=== PATIENT | female | born 1995 | race Caucasian/White ===

== ENCOUNTER → 2017-11-16 | Outpatient (CLI) | payer OTHER ==
[2017-11-16 19:01] LABS: BASO % 0.2 % (0.0-1.0); EOS # 0.1 10^3/uL (0.0-0.50); EOS % 1.4 % (0.0-3.0); HEMATOCRIT 36.6 % (36.0-47.0); HEMOGLOBIN 12.6 g/dl (12.0-15.5); IMMATURE GRANULOCYTE % 0.2 % (0-3.0); LYMPH # 1.8 10^3/uL (1.5-6.5); LYMPH % 21.9 % (24.0-44.0); MEAN CORPUSCULAR HEMOGLOBIN 28.9 pg (27.0-33.0); MEAN CORPUSCULAR HGB CONC 34.4 g/dl (32.0-36.5); MEAN CORPUSCULAR VOLUME 83.9 fl (80.0-96.0); MONO # 0.5 10^3/uL (0.0-0.8); MONO % 6.5 % (0.0-5.0); NEUTROPHILS # 5.8 10^3/uL (1.8-7.7); NEUTROPHILS % 69.8 % (36.0-66.0); PLATELET COUNT, AUTOMATED 232 10^3/uL (150-450); RED BLOOD COUNT 4.36 10^6/uL (4.00-5.40); RED CELL DISTRIBUTION WIDTH 12.6 % (11.5-14.5); WHITE BLOOD COUNT 8.3 10^3/uL (4.0-10.0)
[2017-11-16 22:54] LABS: CHLAMYDIA DNA AMPLIFICATION NEGATIVE (NEGATIVE); GC DNA AMPLIFICATION NEGATIVE (NEGATIVE)
[2017-11-18 11:45] LABS: RUBELLA IgG QUALITATIVE IMMUNE (IMMUNE)
[2017-11-18 11:49] LABS: HBsAg Prenatal NEGATIVE (NEGATIVE)
[2017-11-18 12:13] LABS: HEPATITIS C VIRUS ABY INDEX 0.1 INDEX (<0.8)
[2017-11-18 12:14] LABS: HIV 1&2 SCREEN CENTAUR NEGATIVE (NEGATIVE)
== END ==
LOC: M SMT 13:33
DX: Z34.81 Encounter for supervision of other normal pregnancy, first trimester (principal); Z3A.08 8 weeks gestation of pregnancy
CPT/HCPCS: 86762

== ENCOUNTER → 2018-01-12 | Outpatient (CLI) | payer OTHER | LOC: M SMT 15:34 | DX: Z31.5 Encounter for procreative genetic counseling (principal) | CPT/HCPCS: 36415 ==

== ENCOUNTER → 2018-01-25 | Outpatient (CLI) | payer OTHER | LOC: M RAD 08:33 | DX: Z34.82 Encounter for supervision of other normal pregnancy, second trimester (principal); Z36.89 Encounter for other specified antenatal screening; Z3A.18 18 weeks gestation of pregnancy | CPT/HCPCS: 76811 ==

== ENCOUNTER → 2018-03-05 | Outpatient (CLI) | payer OTHER | LOC: M RAD 08:51 | DX: Z34.82 Encounter for supervision of other normal pregnancy, second trimester (principal); Z36.89 Encounter for other specified antenatal screening; Z3A.22 22 weeks gestation of pregnancy | CPT/HCPCS: 76816 ==

== ENCOUNTER → 2018-03-25 | Outpatient (CLI) | payer OTHER | LOC: M LRY 13:37 | DX: Z34.02 Encounter for supervision of normal first pregnancy, second trimester (principal); Z3A.27 27 weeks gestation of pregnancy | CPT/HCPCS: 76816 ==

== ENCOUNTER → 2018-03-31 | Outpatient (CLI) | payer OTHER ==
[2018-03-31 16:00] LABS: GLUCOSE CHALLENGE TEST 1 HOUR 130 MG/DL (LESS THAN 140)
[2018-03-31 16:00] LABS: MEAN CORPUSCULAR HEMOGLOBIN 27.4 pg (27.0-33.0); MEAN CORPUSCULAR HGB CONC 33.3 g/dl (32.0-36.5); MEAN CORPUSCULAR VOLUME 82.3 fl (80.0-96.0); PLATELET COUNT, AUTOMATED 224 10^3/uL (150-450); RED BLOOD COUNT 4.01 10^6/uL (4.00-5.40); RED CELL DISTRIBUTION WIDTH 13.5 % (11.5-14.5)
== END ==
LOC: M LAB 14:26
DX: Z34.82 Encounter for supervision of other normal pregnancy, second trimester (principal); Z3A.00 Weeks of gestation of pregnancy not specified
CPT/HCPCS: 82950

== ENCOUNTER → 2018-04-16 | Outpatient (CLI) | payer OTHER | LOC: M LRY 08:02 | DX: Z36.89 Encounter for other specified antenatal screening (principal); Z3A.29 29 weeks gestation of pregnancy | CPT/HCPCS: 76816 ==

== ENCOUNTER → 2018-05-24 | Outpatient (REF) | payer OTHER | LOC: M LAB REF 17:28 | PROVIDERS: ATTEND Obstetrics & Gynecology | DX: Z34.03 Encounter for supervision of normal first pregnancy, third trimester (principal) ==

== ENCOUNTER 2018-06-18 15:32 | Inpatient (IN) | payer OTHER ==
[~2018-06-18] VITALS: Ht 165.1 cm; Wt 110.0 kg
[2018-06-18] VITALS (28 sets, daily range): BP systolic 121–187; BP diastolic 66–97
[2018-06-18] MEDS ORDERED: PRENTAB9 PO (16:12)
[2018-06-18] MEDS ORDERED: PRIL20TA2 PO (16:12)
[2018-06-18] MEDS ORDERED: OXYTOCIN DRIP 30 UNITS in APPROPRIATE DILUENT 1 EA IV SCH (16:15)
--- NOTE | 2018-06-18 16:45 | HPE ---
DATE OF ADMISSION: 06/18/2018 Selina is a 22-year-old 1, para 0 with an estimated date of confinement (EDC) of 06/24/2018 based on last menstrual period and confirmed by first-trimester ultrasound. She presents to labor and delivery today following a visit, where she was noted to have a spontaneous rupture of membranes following a cervical exam. She does report that she has been aicha since yesterday afternoon. Denies vaginal bleeding. Has reported continued leakage of fluid since her rupture at approximately 3:30. The fetus has been active. Her care was initiated at [facility] in the first trimester. Her course has been uncomplicated. OBSTETRICAL HISTORY: Primigravida. OBSTETRIC LABORATORIES: B+, antibody screen negative, rubella immune, VDRL nonreactive. Urine culture: No growth. Hepatitis B surface antigen negative. HIV negative. Hepatitis C antibody nonreactive. Gonorrhea and chlamydia negative. She did have panorama testing in the first trimester, which demonstrated low risk for aneuploidy in a male fetus. Her gestational diabetic screening was 130. Group B streptococcus culture was negative. PAST MEDICAL HISTORY: Negative. SURGERIES: None. FAMILY HISTORY: alcohol syndrome, esophageal cancer. SOCIAL HISTORY: The patient is . Her is at bedside, and he is supportive. She reports quitting smoking with the onset of her . She denies alcohol and drug use. She denies any history of sexually transmitted infections and denies history of abuse, physical, sexual, and emotional. ALLERGIES: AMOXICILLIN, which causes hives. CURRENT MEDICATIONS: - omeprazole 20 mg daily - vitamin OBJECTIVE: Temperature 98.2, pulse 95, blood pressure (BP) is 145/96. She is alert and oriented times three. She is smiling and talkative in no discomfort. heart rate is 140 with moderate variability. Positive accelerations observed. Negative decelerations. She is aicha every 2-4 minutes. Her abdomen is gravid, cephalic presentation. Estimated weight 8 pounds. Sterile vaginal exam: 1.5 cm dilated, 75% effaced, -2 station. Noted clear fluid draining from the vagina. ASSESSMENT: Term at 39-1/7 weeks. heart rate category 1. Premature rupture of membranes. PLAN: Admit the patient to labor and delivery. Routine labs with the addition of pre-eclamptic profile and a spot urine. Plan to start intravenous (IV) Pitocin to augment her labor due to the premature rupture of membranes.. The patient is uncertain as to how she will cope with her labor at this time. Epidural has been ordered per as needed. Out of bed ad elizabeth. Clear liquid diet at this time. I do anticipate an active labor and a spontaneous vaginal delivery. I did review risks, including intolerance to labor, arrest of labor. The patient has been verbally consented for emergency surgery and blood products if necessary. The patient and her have had all of their questions answered and do desire to proceed with plan of care. OZZY
[2018-06-18 17:01] LABS: HEMATOCRIT 32.2 % (36.0-47.0); MEAN CORPUSCULAR HEMOGLOBIN 26.6 pg (27.0-33.0); MEAN CORPUSCULAR HGB CONC 34.2 g/dl (32.0-36.5); PLATELET COUNT, AUTOMATED 238 10^3/uL (150-450); RED BLOOD COUNT 4.13 10^6/uL (4.00-5.40); WHITE BLOOD COUNT 13.1 10^3/uL (4.0-10.0)
[2018-06-18] MEDS: LR 1,000 ML IV SCH (17:04)
[2018-06-18 17:31] LABS: ALT/SGPT 31 U/L (12-78); BILIRUBIN,TOTAL 0.3 MG/DL (0.2-1.0); CREATININE FOR GFR 0.57 MG/DL (0.55-1.30); GLOMERULAR FILTRATION RATE > 60.0 (>60); LDH LACTATE DEHYDROGENASE 251 U/L (84-246); URIC ACID 2.9 MG/DL (2.6-6.0)
[2018-06-18 17:38] LABS: CREATININE,RANDOM URINE 60.3 MG/DL; TOTAL PROTEIN,RANDOM URINE 70.8 MG/DL (0.0-12.0)
[2018-06-18 22:04] LABS: HEMATOCRIT 33.5 % (36.0-47.0); MEAN CORPUSCULAR HEMOGLOBIN 26.5 pg (27.0-33.0); MEAN CORPUSCULAR HGB CONC 32.8 g/dl (32.0-36.5); MEAN CORPUSCULAR VOLUME 80.7 fl (80.0-96.0); PLATELET COUNT, AUTOMATED 225 10^3/uL (150-450); RED BLOOD COUNT 4.15 10^6/uL (4.00-5.40)
[2018-06-18] MEDS ORDERED: diphenhydrAMINE INJ 50MG/ML VIAL (J1200) IV PRN (22:15)
[2018-06-18] MEDS ORDERED: NALOXONE INJ 0.4 MG/1 ML VIAL (J2310) IV PRN (22:15)
[2018-06-18] MEDS ORDERED: FENTANYL/ROPIVACAINE/NACL BAG 100 ML EPIDURAL SCH (22:15)
[2018-06-18] MEDS ORDERED: EPIDURAL/PCA KEYS XX PRN (22:15)
[2018-06-18] MEDS ORDERED: EPIDURAL COMMENT XX SCH (22:15)
[2018-06-18] MEDS ORDERED: LACTATED RINGER'S 1000 ML IV PRN (22:15)
[2018-06-18] MEDS ORDERED: ONDANSETRON 4MG/2ML VIAL (J2405) IV PRN (22:15)
[2018-06-18] MEDS ORDERED: ePHEDrine SULFATE 25 MG/5 ML(5MG/ML) SYRINGE IV PRN (22:15)
[2018-06-18] MEDS ORDERED: REFRIGERATOR IV KEYS XX PRN (22:15)
[2018-06-18] MEDS ORDERED: FENTANYL 2MCG/ML ROPIVACAINE 0.2% IN 0.9% NACL 100ML IVBAG As Ordered ONE (22:19)
[2018-06-19] VITALS (34 sets, daily range): BP systolic 112–165; BP diastolic 57–79
[2018-06-19] MEDS: LR 1,000 ML IV SCH (03:39)
[2018-06-19] MEDS ORDERED: OXYTOCIN 30 UNITS IN 0.9% NaCl 500ML IV BAG (J2590) As Ordered ONE (08:41)
[2018-06-19] MEDS ORDERED: OXYTOCIN DRIP 30 UNITS in APPROPRIATE DILUENT 1 EA IV SCH ×5 (09:00→10:07)
[2018-06-19] MEDS ORDERED: MEASLES,MUMPS,RUBELLA VACCINE INJ (MMR-II) (90707) SC SCH (10:15)
[2018-06-19] MEDS ORDERED: ACETAMINOPHEN 500 MG TAB PO PRN (10:15)
[2018-06-19] MEDS ORDERED: IBUPROFEN 800 MG TAB PO PRN (10:15)
[2018-06-19] MEDS ORDERED: METHYLERGONOVINE MALEATE 0.2 MG TAB PO PRN (10:15)
[2018-06-19] MEDS ORDERED: ANUSOL HC CREAM 30GM TOP PRN (10:15)
[2018-06-19] MEDS ORDERED: MOM 30ML SUSPENSION UDC PO PRN (10:15)
[2018-06-19] MEDS ORDERED: DOCUSATE SODIUM 100 MG CAP PO PRN (10:15)
[2018-06-19] MEDS ORDERED: DIBUCAINE 1% OINTMENT 30GM TOP PRN (10:15)
[2018-06-19] MEDS ORDERED: RHOGAM 300 MCG (1500 IU) INJ (J2790) IM SCH (10:15)
--- NOTE | 2018-06-19 10:50 | DN ---
DATE OF DELIVERY: 06/19/2018 TIME OF : 741 GENDER: Male. APGARS: 9 and 9. WEIGHT: 7 pounds 10 ounces or 3460 grams. LACERATIONS: None. ESTIMATED BLOOD LOSS: 300 mL. ANESTHESIA: Epidural. DELIVERY NOTE: On 06/19/2018, at 0742, Mrs. Soto, a 22-year-old, 1, now para 1, had a spontaneous vaginal delivery of a live born male infant, Apgars 9 and 9, weight 7 pounds 10 ounces or 3460 grams. Head was delivered occiput anterior (OA) over an intact perineum followed by delivery of shoulders and corpus. The infant was handed to mom with a good cry. Cord was then clamped times two and was cut by the father of the baby under my direction. Placenta was then drained and delivered grossly intact. A premixed bag of 500 mL of normal saline with 30 units of Pitocin was then bolused along with uterine massage until the uterus was firm. On inspection, the cervix, vagina and perineum was grossly intact and hemostatic. Mom and baby to recovery in stable condition. There were 5 laparotomy sponges accounted for prior to and after the procedure. The couple has decided to name their son, Juan.
[2018-06-20 05:49] VITALS: BP 131/70
[2018-06-20] MEDS: PRENATAL VITAMINS CHEWABLE TABLET PO SCH (08:33)
--- NOTE | 2018-06-20 10:13 | NUR ---
L&D Note: S: Doing well w/o complaints. + voids, + ambulation and pain well controlled. O: vss, AF gen: well appearing abd: soft, nttp, FF@U-2 ext: neg calf tenderness A/P: PPD#1 s/p - recovering in stable condition -continue routine care -d/c plans for tomorrow Asuncion Askew MD
[2018-06-20 18:28] VITALS: BP 126/74
[2018-06-21 06:00] VITALS: BP 113/57
[2018-06-21] MEDS: PRENATAL VITAMINS CHEWABLE TABLET PO SCH (09:01)
[2018-06-21] MEDS ORDERED: PREN27TA3 PO (10:18)
[2018-06-21] MEDS ORDERED: MOTR200T44 PO (10:18)
[2018-06-21] MEDS ORDERED: APAP500T10 PO (10:18)
[2018-06-21] MEDS ORDERED: MILK120011 PO (10:18)
[2018-06-21] MEDS ORDERED: COLA100C5 PO (10:18)
== END 2018-06-21 12:55 | disposition home or self-care (01) | DRG 560 ==
LOC: M LDI 15:32 → M OBS 06-19 13:07
PROVIDERS: ADMIT Advanced Practice Midwife; ATTEND Obstetrics & Gynecology
PROC: 10E0XZZ Delivery of Products of Conception, External Approach (ICD-10-PCS; principal; 2018-06-19)
DX: O42.02 Full-term premature rupture of membranes, onset of labor within 24 hours of rupture (principal); Z37.0 Single live birth; Z3A.39 39 weeks gestation of pregnancy

== ENCOUNTER 2019-07-19 17:06 | Emergency (ER) | payer OTHER, BC ==
[~2019-07-19] VITALS: Ht 167.6 cm; Wt 108.3 kg
[~2019-07-19 17:06] MED LIST: APAP500T10 PO; COLA100C5 PO; MILK120011 PO; MOTR200T44 PO; PREN27TA3 PO; PRENTAB9 PO; PRIL20TA2 PO
[2019-07-19 19:07] LABS: BASO % 0.3 % (0.0-1.0); EOS # 0.1 10^3/uL (0.0-0.5); EOS % 1.2 % (0.0-3.0); HEMATOCRIT 38.4 % (36.0-47.0); HEMOGLOBIN 12.5 g/dl (12.0-15.5); LYMPH % 29.9 % (24.0-44.0); MEAN CORPUSCULAR HEMOGLOBIN 25.5 pg (27.0-33.0); MEAN CORPUSCULAR HGB CONC 32.6 g/dl (32.0-36.5); MEAN CORPUSCULAR VOLUME 78.4 fl (80.0-96.0); MONO # 0.5 10^3/uL (0.0-0.8); MONO % 5.3 % (0.0-5.0); NEUTROPHILS # 6.4 10^3/uL (1.5-8.5); PLATELET COUNT, AUTOMATED 291 10^3/uL (150-450); WHITE BLOOD COUNT 10.1 10^3/uL (4.0-10.0)
[2019-07-19 19:33] LABS: ALBUMIN 4.1 GM/DL (3.2-5.2); ALT/SGPT 25 U/L (12-78); BILIRUBIN,TOTAL 0.2 MG/DL (0.2-1.0); BLOOD UREA NITROGEN 10 MG/DL (7-18); CALCIUM LEVEL 9.1 MG/DL (8.5-10.1); CARBON DIOXIDE LEVEL 28 MEQ/L (21-32); CHLORIDE LEVEL 104 MEQ/L (98-107); CREATININE FOR GFR 0.68 MG/DL (0.55-1.30); GLOMERULAR FILTRATION RATE > 60.0 (>60); GLUCOSE, FASTING 81 MG/DL (70-100); POTASSIUM SERUM 3.6 MEQ/L (3.5-5.1); SODIUM LEVEL 139 MEQ/L (136-145); TOTAL PROTEIN 8.3 GM/DL (6.4-8.2)
[2019-07-19 20:19] VITALS: BP 127/60
[2019-07-19 20:28] LABS: HCG, SERUM QUALITATIVE POSITIVE (NEGATIVE)
[2019-07-19] MEDS ORDERED: ARTICAINE HCL/EPINEPHRINE 4%-1:200,000 1.7ML INJ (SEPTOCAINE) SM ONE (20:45)
[2019-07-20 07:32] LABS: HCG, SERUM QUANTITATIVE 44207 MIU/ML
[2019-07-20 11:39] LABS: HEPATITIS B SURFACE ANTIGEN NEGATIVE (NEGATIVE)
[2019-07-20 11:43] LABS: HEPATITIS B SURFACE ANTIBODY NEGATIVE (POSITIVE)
[2019-07-20 12:08] LABS: HEPATITIS C VIRUS ABY INDEX < 0.0 INDEX (<0.8)
[2019-07-20 12:09] LABS: HIV 1&2 SCREEN CENTAUR NEGATIVE (NEGATIVE)
[2019-07-21] MEDS ORDERED: TRUVADA 200MG/300MG TABLET PO SCH
[2019-07-21] MEDS ORDERED: RALTEGRAVIR 400 MG TAB (ISENTRESS) PO SCH
[2019-07-21] MEDS ORDERED: EXPOSURE KIT-ADULT 7 DAY SUPPLY PO ONE (08:30)
--- NOTE | 2019-07-21 08:33 | ED PDOC ---
Post-Departure Follow-Up received call from Dr. Bedolla - patient had presented for occupational exposure wallis d not received PEP - as per Dr. Bedolla recommendations, I ordered 7 day supply for patient and patient was instructed to return to receive [address] Bedolla wrote 21 day script. Griselda Rodriguez MD Jul 21, 2019 08:33
[2019-07-21] MEDS ORDERED: TRUVADA 200MG/300MG TABLET PO ONE (09:00)
[2019-07-21] MEDS ORDERED: RALTEGRAVIR 400 MG TAB (ISENTRESS) PO ONE (09:00)
== END 2019-07-19 21:10 | disposition home or self-care (01) ==
LOC: M ED 17:06
DX: Z77.21 Contact with and (suspected) exposure to potentially hazardous body fluids (principal); Z20.5 Contact with and (suspected) exposure to viral hepatitis; W46.1XXA Contact with contaminated hypodermic needle, initial encounter; Y92.89 Other specified places as the place of occurrence of the external cause; Y93.F9 Activity, other caregiving; Y99.0 Civilian activity done for income or pay; Z32.01 Encounter for pregnancy test, result positive; Z79.899 Other long term (current) drug therapy; Z88.0 Allergy status to penicillin

== ENCOUNTER → 2019-07-29 | Outpatient (REF) | payer BC ==
[2019-07-29 17:25] LABS: HEMATOCRIT 36.2 % (36.0-47.0); HEMOGLOBIN 11.9 g/dl (12.0-15.5); MEAN CORPUSCULAR HEMOGLOBIN 25.6 pg (27.0-33.0); MEAN CORPUSCULAR HGB CONC 32.9 g/dl (32.0-36.5); PLATELET COUNT, AUTOMATED 287 10^3/uL (150-450); RED BLOOD COUNT 4.64 10^6/uL (4.00-5.40); WHITE BLOOD COUNT 9.3 10^3/uL (4.0-10.0)
[2019-07-29 18:51] LABS: CHLAMYDIA DNA AMPLIFICATION NEGATIVE (NEGATIVE); GC DNA AMPLIFICATION NEGATIVE (NEGATIVE)
[2019-08-01 08:52] LABS: HIV 1&2 SCREEN CENTAUR NEGATIVE (NEGATIVE); RUBELLA IgG QUALITATIVE IMMUNE (IMMUNE)
[2019-08-01 14:44] LABS: HEPATITIS B SURFACE ANTIGEN NEGATIVE (NEGATIVE); HEPATITIS C VIRUS ABY INDEX 0.1 INDEX (<0.8)
== END ==
LOC: M PLALAB 13:31
PROVIDERS: ATTEND Obstetrics & Gynecology
DX: Z34.91 Encounter for supervision of normal pregnancy, unspecified, first trimester (principal)

== ENCOUNTER → 2019-08-26 | Outpatient (REF) | payer BC | LOC: M SFHCWAGY 16:52 | PROVIDERS: ATTEND Advanced Practice Midwife | DX: O99.211 Obesity complicating pregnancy, first trimester (principal) ==

== ENCOUNTER → 2019-09-05 | Outpatient (REF) | payer BC ==
[2019-09-06 08:49] LABS: HIV 1&2 SCREEN CENTAUR NEGATIVE (NEGATIVE)
[2019-09-07 11:21] LABS: HEPATITIS B SURFACE ANTIBODY NEGATIVE (POSITIVE); HEPATITIS B SURFACE ANTIGEN NEGATIVE (NEGATIVE); HEPATITIS C VIRUS ABY INDEX 0.1 INDEX (<0.8)
== END ==
LOC: M SFHCPLAZ 14:34
PROVIDERS: ATTEND Internal Medicine Infectious Disease
DX: Z11.59 Encounter for screening for other viral diseases (principal)

== ENCOUNTER → 2019-09-26 | Outpatient (CLI) | payer BC | LOC: M WHC 08:52 | PROVIDERS: ATTEND Advanced Practice Midwife | DX: Z34.92 Encounter for supervision of normal pregnancy, unspecified, second trimester (principal); Z3A.00 Weeks of gestation of pregnancy not specified; Z53.9 Procedure and treatment not carried out, unspecified reason ==

== ENCOUNTER → 2019-10-12 | Outpatient (CLI) | payer BC ==
--- NOTE | 2019-10-13 02:55 | REP ---
Clinical: Anatomical evaluation. Comparison: None. Findings: Examination demonstrates a single live intrauterine in variable presentation. motion is identified by technologist. Placenta is noted anterior and grade I without evidence for placenta previa or abruption. Amniotic fluid volume is normal. Cervix measures 4.1 cm in length and appears closed. No evidence for nuchal cord. Gestational age by current measurements 18 weeks 6 days with CELSO 03/08/2020 . FHR equals 146 beats per minute. BPD 4.2 cm 18 weeks 5 days HC 15.9 cm 18 weeks 5 days AC 13.2 cm 18 weeks 5 days FL 3.1 cm 19 weeks 4 days HL 2.9 cm 19 weeks 3 days HC/AC ratio 1.21 Estimated weight 270 grams ( 55th percentile). Anatomical assessment demonstrates normal structures including cranium, choroid plexus, cavum, cerebellum/posterior fossa, facial features, lungs, diaphragm, stomach, three-vessel cord, kidneys/bladder, and extremities. Limited evaluation of the heart/ventricle outflow tracts, cord insertion, and spine due to positioning. Impression: Single live intrauterine in variable presentation demonstrating appropriate weight. Anatomical limitations as noted above may warrant reevaluation and follow-up.
== END ==
LOC: M WHC 13:28
PROVIDERS: ATTEND Advanced Practice Midwife
DX: Z36.89 Encounter for other specified antenatal screening (principal); Z3A.18 18 weeks gestation of pregnancy

== ENCOUNTER → 2019-11-18 | Outpatient (CLI) | payer BC ==
[~2019-11-18] MED LIST changes: +DOCU100C16 PO; +IBUP80TA PO
--- NOTE | 2019-11-19 14:09 | REP ---
REASON: Followup anatomy. Multiple ultrasonographic images of the gravid uterus show a single living intrauterine gestation in the cephalic presentation. Doppler interrogation of the heart shows a heart rate of 150 beats per minute. The placenta is anterior and not low lying. The subjective amniotic fluid volume is within normal limits. The cervix measures 4.1 cm in length and is closed. BPD 5.7 cm = 23 weeks 4 days HC 22.1 cm = 24 weeks 1 day AC 19.6 cm = 24 weeks 2 days FL 4.6 cm = 25 weeks 4 days The estimated weight is 708 grams, which is at the 58th percentile for a 24 week 1 day gestational age. The four-chamber heart, right and left ventricular outflow tracts, and cord insertion were seen to be within normal limits today. Once again, spine was suboptimally visualized. IMPRESSION: Single living intrauterine gestation, as described above, and an estimated gestational age of 24 weeks 0 days via composite criteria and an estimated date of delivery of 03/09/2020 by today's exam. No anomalies were detected, however, I recommend a followup examination to confirm a normal spine.
== END ==
LOC: M WHC 14:07
PROVIDERS: ATTEND Advanced Practice Midwife
DX: O99.212 Obesity complicating pregnancy, second trimester (principal); E66.9 Obesity, unspecified; Z3A.24 24 weeks gestation of pregnancy

== ENCOUNTER 2019-12-30 08:06 | Outpatient (CLI) | payer BC ==
[~2019-12-30] VITALS: Ht 165.1 cm; Wt 109.3 kg
[~2019-12-30 08:06] MED LIST changes: -DOCU100C16 PO; -IBUP80TA PO
--- NOTE | 2019-12-30 09:59 | REPVR ---
PROCEDURE INFORMATION: Exam: US Abdomen, Limited; Right Upper Quadrant Exam date and time: 12/30/2019 9:39 AM Age: 24 years old Clinical indication: Abdominal pain; Generalized; ; Additional info: Abd pain x 5 days, 30 weeks TECHNIQUE: Imaging protocol: US abdomen. Real time ultrasound with image documentation. Limited exam focused on the right upper quadrant. COMPARISON: GALLBLADDER US 12/30/2019 9:24 AM FINDINGS: Liver: Liver measures 18.1 cm in length and demonstrates mild increased echogenicity, consistent with fatty infiltration. No intrahepatic biliary duct dilatation. Gallbladder: There are several small gallstones within the gallbladder/gallbladder neck. No significant gallbladder wall thickening. No pericholecystic fluid. Common bile duct: Bile ducts are normal in caliber. CBD 2 mm. Pancreas: Visualized pancreas is unremarkable. Right kidney: Right kidney measures 13 cm in length. Mild pelviectasis and proximal hydroureter is likely physiologic related to third trimester . No significant hydronephrosis. Intraperitoneal space: No evidence of free fluid. Uterus: Intrauterine in cephalic position with a heart rate of 150 bpm. IMPRESSION: 1. Cholelithiasis. No sonographic evidence of cholecystitis. 2. Mild fatty infiltration of the liver. 3. Mild pelviectasis and proximal hydroureter is likely physiologic related to third trimester . No significant hydronephrosis. 4. Living intrauterine in cephalic position. Electronically signed by: Camden Hernández On 12/30/2019 09:59:25 AM
[2019-12-30 10:03] VITALS: BP 134/81
[2019-12-30 10:17] LABS: APPEARANCE, URINE CLEAR (CLEAR); BACTERIA, URINE AUTO 1+ (NEGATIVE); BILIRUBIN, URINE AUTO NEGATIVE (NEGATIVE); BLOOD, URINE BLOOD NEGATIVE (NEGATIVE); COLOR, URINE YELLOW (YELLOW); GLUCOSE, URINE (UA) AUTO NEGATIVE (NEGATIVE); KETONE, URINE AUTO NEGATIVE (NEGATIVE); LEUKOCYTE ESTERASE, URINE AUTO NEGATIVE (NEGATIVE); MUCUS, URINE SMALL (NEGATIVE); NITRITE, URINE AUTO NEGATIVE (NEGATIVE); PROTEIN, URINE AUTO NEGATIVE (NEGATIVE); RBC, URINE AUTO 0 /HPF (0-3); SPECIFIC GRAVITY URINE AUTO 1.013 (1.002-1.035); SQUAMOUS EPITHELIAL CELL UR AU 1 /HPF (0-6); UROBILINOGEN, URINE AUTO 0.2 mg/dL (0.0-2.0); WBC, URINE AUTO 1 /HPF (0-3)
[2019-12-30 10:51] LABS: HEMATOCRIT 33.3 % (36.0-47.0); MEAN CORPUSCULAR HEMOGLOBIN 26.3 pg (27.0-33.0); MEAN CORPUSCULAR VOLUME 79.7 fl (80.0-96.0); PLATELET COUNT, AUTOMATED 225 10^3/uL (150-450); RED BLOOD COUNT 4.18 10^6/uL (4.00-5.40); WHITE BLOOD COUNT 6.7 10^3/uL (4.0-10.0)
[2019-12-30 11:18] LABS: ALT/SGPT 21 U/L (12-78); BILIRUBIN,TOTAL 0.3 MG/DL (0.2-1.0); CREATININE FOR GFR 0.48 MG/DL (0.55-1.30); GLOMERULAR FILTRATION RATE > 60.0 (>60); LDH LACTATE DEHYDROGENASE 166 U/L (84-246); URIC ACID 2.5 MG/DL (2.6-6.0)
[2019-12-30 12:47] LABS: CREATININE,RANDOM URINE 99.1 MG/DL; TOTAL PROTEIN,RANDOM URINE 16.4 MG/DL (0.0-12.0)
--- NOTE | 2019-12-30 12:57 | IPNPDOC ---
Text Note Date of Service The patient was seen on 12/30/19. NOTE Outpatient 24yo CELSO 03/04/2020. Presents at 30w5d with complaints of upper abdominal and chest pain. Reports it was so uncomfortable that her son couldn't lie on her. Pt state she hasn't been seen in 8 wks due to rescheduling and computer outage issues. NAD. VSS, afebrile, normotensive Abdomen soft, tender epigastric area FH Cat I reassuring for gestation No UC GB sono shows multiple gallstones. Labs WNL, urine ratio 0.17 [address]charged home. Appt made for Thursday. Orders given for f/u sono, 26wk labs. Warnings reviewed. Discussed lo fat diet VS,Fishbone, I+O VS, Fishbone, I+O Laboratory Tests 12/30/19 10:25 Vital Signs Date Time Temp Pulse Resp B/P (MAP) Pulse Ox O2 Delivery O2 Flow Rate FiO2 12/30/19 10:03 97.8 96 18 134/81 (98) Room Air Maggie Guzman CNM Dec 30, 2019 12:26
== END 2019-12-30 13:02 | disposition home or self-care (01) ==
LOC: M LDO 08:06
PROVIDERS: ATTEND Advanced Practice Midwife
DX: O99.613 Diseases of the digestive system complicating pregnancy, third trimester (principal); K80.70 Calculus of gallbladder and bile duct without cholecystitis without obstruction; K76.0 Fatty (change of) liver, not elsewhere classified; Z3A.30 30 weeks gestation of pregnancy
CPT/HCPCS: 36415; 59025; 76705; 81001; 82247; 82565; 82570; 83615; 84156; 84450; 84460; 84550; 85027; 87086; G0378; G0463

== ENCOUNTER → 2020-01-03 | Outpatient (CLI) | payer BC ==
[~2020-01-03] MED LIST changes: +DOCU100C16 PO; +IBUP80TA PO
[2020-01-03 12:57] LABS: HEMATOCRIT 33.1 % (36.0-47.0); HEMOGLOBIN 10.8 g/dl (12.0-15.5); MEAN CORPUSCULAR HEMOGLOBIN 26.1 pg (27.0-33.0); MEAN CORPUSCULAR HGB CONC 32.6 g/dl (32.0-36.5); PLATELET COUNT, AUTOMATED 233 10^3/uL (150-450); RED BLOOD COUNT 4.14 10^6/uL (4.00-5.40); WHITE BLOOD COUNT 8.8 10^3/uL (4.0-10.0)
== END ==
LOC: M PLALAB 08:14
PROVIDERS: ATTEND Advanced Practice Midwife
DX: O99.210 Obesity complicating pregnancy, unspecified trimester (principal)

== ENCOUNTER → 2020-01-04 | Outpatient (CLI) | payer BC ==
--- NOTE | 2020-01-11 14:50 | REP ---
FOLLOW-UP OBSTETRIC ULTRASOUND CLINICAL: Follow-up spine. COMPARISON: 11/18/2019, 10/12/2019. TECHNIQUE: Transabdominal and transvaginal obstetrical ultrasound with color Doppler evaluation. FINDINGS: Single live intrauterine identified. motion was noted. The placenta is identified anteriorly and grade 2. Images suggest anterior marginal previa versus low-lying placenta, which appears to extend just to the level of the internal os without obvious evidence for crossing the os, based on given images. Prior examinations were reviewed and demonstrate a similar low-lying placenta and never demonstrate total previa or other abnormality. The current examination demonstrates a closed cervix, which measures approximately 4 cm in length. Amniotic fluid volume is normal. APRIL equals 11.1 cm. Gestational age by current biometrical measurements 30 weeks 3 days with estimated date of delivery 03/11/2020. Estimated weight 1658 grams (22nd percentile). Limited anatomical assessment demonstrates normal images of the spine. No gross abnormalities are identified. IMPRESSION: 1. Anterior grade 2 placenta with images to suggest marginal previa extending to the internal os. 2. Limited anatomical assessment demonstrates normal images of the spine. 3. Normal estimated weight. MTDD
== END ==
LOC: M WHC 10:02
PROVIDERS: ATTEND Advanced Practice Midwife
DX: Z36.89 Encounter for other specified antenatal screening (principal); Z3A.30 30 weeks gestation of pregnancy

== ENCOUNTER → 2020-02-01 | Outpatient (CLI) | payer BC ==
--- NOTE | 2020-02-14 13:38 | REP ---
OBSTETRIC SONOGRAPHY: (REPEAT DICTATION) HISTORY: Limited study third trimester follow-up placenta previa. FINDINGS: Limited scanning demonstrates a single living intrauterine gestation in a cephalic lie. motion is observed and heart rate is recorded at 142 beats per minute. An anterior grade 2 placenta is seen. Low-lying head renders it difficult to measure the distance between the inferior edge of the anterior placenta and the internal cervical os; although, there does not appear to be placenta previa. Low-lying placenta suspected. Closed cervical length measured transvaginally is 34 cm. A tiny sliver of fluid is seen in the endocervical canal. No extrauterine abnormality is observed. Amniotic fluid index (APRIL) is normal at 12.6 cm. IMPRESSION: Findings consistent with low-lying placenta. No eris previa. MTDD
== END ==
LOC: M WHC 15:19
PROVIDERS: ATTEND Specialist
DX: Z34.80 Encounter for supervision of other normal pregnancy, unspecified trimester (principal); Z3A.00 Weeks of gestation of pregnancy not specified

== ENCOUNTER → 2020-02-08 | Outpatient (REF) | payer BC | LOC: M SFHCWAGY 13:14 | PROVIDERS: ATTEND Obstetrics & Gynecology | DX: Z34.83 Encounter for supervision of other normal pregnancy, third trimester (principal); Z3A.00 Weeks of gestation of pregnancy not specified ==

== ENCOUNTER 2020-03-06 00:11 | Inpatient (IN) | payer BC ==
[2020-03-06] VITALS (20 sets, daily range): BP systolic 106–142; BP diastolic 53–93
[~2020-03-06] VITALS: Ht 165.1 cm; Wt 113.0 kg
[~2020-03-06 00:11] MED LIST changes: -DOCU100C16 PO; -IBUP80TA PO
[2020-03-06] MEDS ORDERED: LACTATED RINGER'S 1000 ML IV STA (00:41)
[2020-03-06] MEDS ORDERED: LR 1,000 ML IV SCH (00:41)
--- NOTE | 2020-03-06 01:25 | HPEPDOC ---
Obstetrical History & Physical General Date of Admission 03/06/20 Primary Care Physician: ROSELINE HANSON CNM History of Present Illness Selina is a 24 y/o at 40.2 weeks EGA by 8-week ultrasound on 07/29/19. She is admitted to Labor and Delivery (L&D) in active labor that began at 2300 on 03/05/20 and SROM for clear fluid at 2330. SVE 5/70/-1, soft, posterior with informed consent. Uncomplicated , history of preeclampsia with last . 1st trimester pre-eclampsia panel normal. Denies headache, visual changes, epigastric pain, nausea. Reports active movement. Denies vaginal bleeding. Chief Complaint: Active Labor Information Provided By: Patient Age: 24 : 2 Term: 1 Pre-term: 0 Abortions: 0 Livin Care Care: Good Care Number of Visits: 7 Dating Final EDC: Mar 04, 2020 Final EDC by: 1st trimester () 1st Trimester Date: Jul 29, 2019 Weeks + Days: 8.5 EGA at Admission: 40.2 Antepartum Course Pre- weight (lbs.): 237 Past Medical History Past Obstetrical History : Past Obstetrical History: Primgravida Date of Delivery: Jun 19, 2018 Gestation: 39.2 Type of Delivery: Spontaneous Vaginal Del. 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 pertinent history Past Medical History Medical History 12/30/19 - Cholelithiasis Surgical History: Denies/None Family History Significant Family History: Cancer (Father- esophagus cancer) Social History Marital Status: Family situation: Spouse/partner home Psychosocial History: No pertinent psych hx * Smoker: non-smoker Alcohol: Denies Drugs: denies Abuse Violence Screening Have you been hit/kicked/slapp: No Have you been sexually assault: No Imunizations Tdap status: current Influenza Status: declined Allergies Coded Allergies: amoxicillin (Verified Allergy, Intermediate, hives, 07/19/19) Medications Scheduled Omeprazole Magnesium (Prilosec Otc) 20 Mg Tab, 1 TAB PO DAILY Pnv,Calcium 72/Iron/Folic Acid ( Vitamin Plus Low Iron) 1 Tab Tab, 1 TAB PO DAILY No.137/Iron/Folic Acd ( Vitamin Tablet) 1 Tab Tab, 1 TAB PO DAILY Scheduled PRN Acetaminophen (Acetaminophen) 500 Mg Tab, 1,000 MG PO Q6HP PRN for MILD PAIN (PS 1-4) Docusate Sodium (Colace) 100 Mg Cap, 1 CAP PO DAILYPRN PRN for CONSTIPATION Ibuprofen (Motrin Ib) 200 Mg Tab, 800 MG PO Q8HP PRN for MODERATE PAIN (PS 5-7) Milk Of Magnesia (Milk of Magnesia) 1,200 Mg/15 Ml Giovana, 30 ML PO DAILYPRN PRN for CONSTIPATION Physical Examination Physical Examination GENERAL: Alert and oriented times three. ABDOMEN: Gravid and non-tender to touch. FETUS: Is vertex (VTX) by sterile vaginal examination (SVE), fetus is vertex (VTX) by Jose. EFW 8-8.5 lbs by Jammie. Clear fluid noted on bed and leaking from introitus. Moderate amount of clear fluid noted leaking after cervical exam. Patient has ruptured. HEART RATE: Regular rate and audible murmur. LUNGS: Clear to auscultation bilaterally.. EXTREMITIES: No edema. No clonus. Deep tendon reflexes (DTRs) + 2. Vital Signs/I&O BP: 156/80; repeat 139/85; HR: 115; RR: 18; Temp: 97.8 Laboratory Data Urine Culture: No Growth Pertinent Laboratoy Data Blood Type: B+ RBC Antibody Screen: Negative HIV: Negative Hepatitis B: Negative Hepatitis C: Negative Rapid Plasma Reagin: Nonreactive Rubella: Immune Varicella: Unknown Chlamydia/Gonorrhea: Negative Group B Streptococcus: Negative Glucose Tolerance Test: 99 Anatomy Ultrasound Normal Anatomy: Yes Placenta Previa: No (2 cm from cervical os) Steroid Therapy Steroid Therapy: No Vaginal Examination Dilation: 5 cm Effacement: 70% Station: -1 Cervical Consistency: Soft Cervical Position: Posterior Presentation: Cephalic presentation Position: Vertex (occiput) Assessment Heart Rate (FHR): 145 Variability: Moderate Accelerations: Positive Decelerations: Early, Variable Tocometer Contractions: Yes Frequency: regular, every 2-5 min. Duration: greater than 60 seconds Strength: palpated as moderate Multi-drug resistant Organism: No history of MDRO Assessment/Plan Assessment IUP at 40.2 weeks in active Labor active labor with SROM, clear fluid GBS negative Category 2 FHR Tracing, overall reassuring (1 variable noted)-essentially a Category I FHR tracing. Plan Admit to Labor and delivery. OOB ad elizabeth. Diet: Clear Liquids. Group B Streptococcus (GBS) negative. Labs and intravenous (IV) per unit protocol. Pain management options reviewed. Anesthesia consult per patient's request. Lactated Ringers (LR): Bolus 500 mL, then at 125 mL/hr. Anticipate normal spontaneous delivery (). C-S as appropriate. ROSELINE HANSON CNM Mar 06, 2020 01:25
[2020-03-06 01:45] LABS: HEMATOCRIT 32.4 % (36.0-47.0); HEMOGLOBIN 10.2 g/dl (12.0-15.5); MEAN CORPUSCULAR HEMOGLOBIN 24.1 pg (27.0-33.0); MEAN CORPUSCULAR HGB CONC 31.5 g/dl (32.0-36.5); MEAN CORPUSCULAR VOLUME 76.6 fl (80.0-96.0); PLATELET COUNT, AUTOMATED 222 10^3/uL (150-450); RED BLOOD COUNT 4.23 10^6/uL (4.00-5.40); WHITE BLOOD COUNT 11.1 10^3/uL (4.0-10.0)
[2020-03-06] MEDS ORDERED: OXYTOCIN 30 UNITS IN 0.9% NaCl 500ML IV BAG (J2590) As Ordered ONE (02:02)
[2020-03-06] MEDS ORDERED: FENTANYL 2MCG/ML ROPIVACAINE 0.2% IN 0.9% NACL 100ML IVBAG As Ordered ONE (02:02)
--- NOTE | 2020-03-06 02:27 | IPNPDOC ---
Obstetrical Progress Note Date of Service Mar 06, 2020 Subjective Patient feeling rectal pressure with contractions. Requesting an epidural. Objective BP 131/70 HR100 R20 Assessment Heart Rate (FHR): 145 Variability: Moderate Accelerations: Positive Decelerations: Early Heart Rate Tracing: Category I Tocometer Contractions: Yes Frequency: regular, every 1-3 min. Duration: greater than 60 seconds Strength: palpated as strong Sterile Vaginal Examination Dilation: 8 cm (8-9) Effacement (%): 90% Station: 0 Cervical Consistency: Soft Cervical Position: Middle Postion/Presentation: Cephalic presentation Assessment and Plan Age: 24 : 2 Term: 1 Pre-term: 0 Abortions: 0 Livin EGA at Admission: 40.2 Status: Reassuring Group B Streptococcus: Negative Anticipate: Vaginal Delivery Additional Comments SPEECH THERAPIST in room to give patient an epidural. SVE with informed consent due patient c/o pressure. Small amount of bloody show noted on glove, clear fluid on bed and glove. ROSELINE HANSON CNM Mar 06, 2020 02:27
[2020-03-06] MEDS ORDERED: miSOPROStol 50 MCG 1/2 TAB (S0191) As Ordered ONE (03:13)
[2020-03-06] MEDS ORDERED: REFRIGERATOR IV KEYS XX PRN (03:45)
[2020-03-06] MEDS ORDERED: FENTANYL/ROPIVACAINE/NACL BAG 100 ML EPIDURAL SCH (03:45)
[2020-03-06] MEDS ORDERED: EPIDURAL/PCA KEYS XX PRN (03:45)
[2020-03-06] MEDS ORDERED: ONDANSETRON 4MG/2ML VIAL IV PRN (03:45)
[2020-03-06] MEDS ORDERED: LACTATED RINGER'S 1000 ML IV PRN (03:45)
[2020-03-06] MEDS ORDERED: NALOXONE INJ 0.4MG/1ML VIAL (J2310 PER 1MG) IV PRN (03:45)
[2020-03-06] MEDS ORDERED: ePHEDrine SULFATE 25 MG/5 ML(5MG/ML) SYRINGE IV PRN (03:45)
[2020-03-06] MEDS ORDERED: diphenhydrAMINE 50MG/ML VIAL (J1200) IV PRN (03:45)
[2020-03-06] MEDS ORDERED: EPIDURAL COMMENT XX SCH (03:45)
[2020-03-06] MEDS ORDERED: OXYTOCIN DRIP 30 UNITS in IV 1 EA IV SCH (05:08)
[2020-03-06] MEDS ORDERED: ACETAMINOPHEN 500 MG TAB PO PRN (05:15)
[2020-03-06] MEDS ORDERED: ANUSOL HC CREAM 30GM TOP PRN (05:15)
[2020-03-06] MEDS ORDERED: DOCUSATE SODIUM 100 MG CAP PO PRN (05:15)
[2020-03-06] MEDS ORDERED: MEASLES,MUMPS,RUBELLA VACCINE INJ (MMR-II) (90707) SC SCH (05:15)
[2020-03-06] MEDS ORDERED: IBUPROFEN 600MG TAB PO PRN (05:15)
[2020-03-06] MEDS ORDERED: METHYLERGONOVINE MALEATE 0.2 MG TAB PO PRN (05:15)
[2020-03-06] MEDS ORDERED: DIBUCAINE 1% OINTMENT 30GM TOP PRN (05:15)
[2020-03-06] MEDS ORDERED: RHOGAM 300 MCG (1500 IU) INJ (J2790) IM SCH (05:15)
[2020-03-06] MEDS ORDERED: ACETAMINOPHEN TAB 650MG DOSE (2X325MG) PO PRN (05:15)
--- NOTE | 2020-03-06 05:24 | DNPDOC ---
[facility] Delivery Note Delivery Note DATE OF DELIVERY: 03/06/20 at 0421 PREDELIVERY DIAGNOSIS: 40-2/7 weeks' gestation and labor. POST DELIVERY DIAGNOSIS: Delivered. PROCEDURE: Spontaneous vaginal delivery. TOY CONSULTANT: Viral Cooney CNM, MARCELLO/ [address] ANESTHESIA: Epidural. ESTIMATED BLOOD LOSS: 300 mL. FINDINGS: 8 pound 0 ounce (3640g) Female , Score 9/9. DELIVERY SUMMARY: Patient is a 24-year-old 2 now para 2-0-0-2 who was admitted to labor and delivery at for SROM and active labor. Patient requested epidural for pain management and she progressed to full dilation at 0409. She pushed to a viable female delivered JOE, with restitution to ROT. Anterior shoulder delivered with downward traction and the corpus immediately followed. Infant placed skin to skin on maternal abdomen. Cord clamped x2 after 2 min. and cut by father of baby. Placenta delivered intact at 0431, via esperanza mechanism. Fundal massage and IV Pitocin bolus started after delivery of placenta and uterus firmed at umbilicus with small to moderate flow. Perineum, vagina, and cervix examined and noted to be intact. Mother and left in stable condition. Mom plans to breastfeed and is naming her "Dorothy". ROSELINE COONEY CNM Mar 06, 2020 05:06
[2020-03-06] MEDS: IBUPROFEN 800 MG TAB PO PRN ×2 (08:06→18:00)
[2020-03-06] MEDS: PRENATAL VITAMINS CHEWABLE TABLET PO SCH (08:06)
[2020-03-07] MEDS: IBUPROFEN 800 MG TAB PO PRN (05:02)
[2020-03-07 05:23] VITALS: BP 101/59
--- NOTE | 2020-03-07 08:23 | IPNPDOC ---
Progress Note Date of Service: Mar 07, 2020 Day#: 1 Progress Note PPD 1 SUBJECT: Selina is a 24yo [id number] s/p uncomplicated at 0421 on 03/06 after presenting in active labor at 40w2d, doing well day # 1. She has been ambulating, voiding spontaneously without issue and tolerating regular diet. Breast feeding without issue. Reports lochia is like a normal period. No f/c/n/v/CP/SOB. OBJECTIVE: VITAL SIGNS: Within normal limits, afebrile. Alert and oriented times three. Abdomen: Fundus firm at U-2. Soft, NTTP. Extremities: no pain with palpation of calves ASSESSMENT: Selina is a 24yo [id number] s/p uncomplicated at 0421 on 03/06 after presenting in active labor at 40w2d, doing well day # 1. Vitals within normal limits, afebrile, hemodynamically stable with no evidence of infection. PLAN: 1. Discharge to home today. 2. Tylenol and Motrin for pain. 3. Encourage breast feeding and ambulation. 4. Interested in minipill for contraception 5. Routine PP visit in 6 weeks in clinic. 6. Discussed return precautions at length. 7. Vaginal rest no heavy lifting 6 weeks Orly Franks MD VS, I&O, 24H, Fishbone Vital Signs/I&O Vital Signs Date Time Temp Pulse Resp B/P (MAP) Pulse Ox O2 Delivery O2 Flow Rate FiO2 03/07/20 05:23 97.3 82 15 101/59 (73) Room Air 03/06/20 06:30 98 I&O- Last 24 Hours up to 6 AM 03/07/20 05:59 Intake Total 480 ml Output Total 650 ml Balance -170 ml Orly Franks MD Mar 07, 2020 08:23
[2020-03-07] MEDS ORDERED: IBUP80TA PO (08:25)
[2020-03-07] MEDS ORDERED: DOCU100C16 PO (08:25)
--- NOTE | 2020-03-07 08:28 | DS.PDOC ---
Discharge Summary General Date of Admission Mar 06, 2020 at 00:41 Date of Discharge Mar 07, 2020 Discharge Summary PROCEDURES PERFORMED DURING STAY: spontaneous vaginal delivery ADMITTING DIAGNOSES: 1. active labor at term DISCHARGE DIAGNOSES: 1. active labor at term COMPLICATIONS/CHIEF COMPLAINT: Labor Check. HISTORY OF PRESENT ILLNESS/HOSPITAL COURSE: Selina is a 24yo [id number] s/p uncomplicated at 0421 on 03/06 after presenting in active labor at 40w2d, doing well day # 1. She had a benign course and at time of discharge, vitals within normal limits, afebrile, hemodynamically stable with no evidence of infection. DISCHARGE MEDICATIONS: Please see below. ALLERGIES: Please see below. PHYSICAL EXAMINATION ON DISCHARGE: VITAL SIGNS: Within normal limits, afebrile. Alert and oriented times three. Abdomen: Fundus firm at U-2. Soft, NTTP. Extremities: no pain with palpation of calves LABORATORY DATA: Please see below. DIET: regular DISPOSITION: home DISCHARGE PLAN/INSTRUCTIONS: 1. Discharge to home today. 2. Tylenol and Motrin for pain. 3. Encourage breast feeding and ambulation. 4. Interested in minipill for contraception 5. Routine PP visit in 6 weeks in clinic. 6. Discussed return precautions at length. 7. Vaginal rest no heavy lifting 6 weeks DISCHARGE CONDITION: Stable TIME SPENT ON DISCHARGE: Greater than 20 minutes. Orly Franks MD Vital Signs/I&Os Vital Signs Date Time Temp Pulse Resp B/P (MAP) Pulse Ox O2 Delivery O2 Flow Rate FiO2 03/07/20 05:23 97.3 82 15 101/59 (73) Room Air 03/06/20 06:30 98 I&O- Last 24 Hours up to 6 AM 03/07/20 05:59 Intake Total 480 ml Output Total 650 ml Balance -170 ml Discharge Medications Scheduled Omeprazole Magnesium (Prilosec Otc) 20 Mg Tab, 1 TAB PO DAILY, (Reported) Pnv,Calcium 72/Iron/Folic Acid ( Vitamin Plus Low Iron) 1 Tab Tab, 1 TAB PO DAILY, (Reported) Scheduled PRN Docusate Sodium (Docusate Sodium) 100 Mg Capsule, 100 MG PO QHSP PRN for CONSTIPATION Ibuprofen (Ibuprofen) 800 Mg Tablet, 800 MG PO Q8HP PRN for PAIN LEVEL 6-10 Allergies Coded Allergies: amoxicillin (Verified Allergy, Intermediate, hives, 3/10/20) Orly Franks MD Mar 07, 2020 08:27
[2020-03-07] MEDS: PRENATAL VITAMINS CHEWABLE TABLET PO SCH (09:44)
== END 2020-03-07 12:30 | disposition home or self-care (01) | DRG 560 ==
LOC: M LDO 00:11 → M LDI 00:41 → M OBS 06:31
PROVIDERS: ADMIT Advanced Practice Midwife; ATTEND Advanced Practice Midwife
PROC: 10E0XZZ Delivery of Products of Conception, External Approach (ICD-10-PCS; principal; 2020-03-06)
DX: O48.0 Post-term pregnancy (principal); Z3A.40 40 weeks gestation of pregnancy; Z37.0 Single live birth

== ENCOUNTER → 2020-07-19 | Outpatient (REF) | payer BC ==
[~2020-07-19] MED LIST changes: +DOCU100C16 PO; +IBUP80TA PO
== END ==
LOC: M SFHCWAGY 17:21
PROVIDERS: ATTEND Advanced Practice Midwife
DX: Z12.4 Encounter for screening for malignant neoplasm of cervix (principal)

== ENCOUNTER → 2020-09-19 | Outpatient (CLI) | payer BC ==
--- NOTE | 2020-09-20 06:39 | REP ---
INDICATION: R10.2 PELVIC PAIN,Z30.431 SURVEILLANCE IUD COMPARISON: None. TECHNIQUE: Transabdominal pelvic ultrasound followed by transvaginal examination for better evaluation of the endometrium and adnexa with color Doppler evaluation of the ovaries. FINDINGS: Bladder is collapsed. Normal anteverted uterus measures 6.4 x 2.6 x 4.1 cm. The endometrial complex measures 3.6 mm thickness. No discrete uterine or endometrial abnormalities are appreciated. IUD identified in central satisfactory position. Bilateral ovaries are normal in appearance and vascularity without evidence for torsion. Right ovary measures 2.3 x 1.9 x 1.5 cm with 1.2 cm dominant follicle; R I = 0.59. Left ovary measures 2.4 x 1.9 x 1.4 cm with 8 mm hyperechoic structure presumed hemorrhagic cyst versus teratoma; R I = 0.57. No pelvic fluid or adnexal mass lesion IMPRESSION: 1. Normal uterus and right ovary. 2. Subcentimeter hyperechoic focus in the left ovary may represent dermoid cyst or hemorrhagic cyst. Consider follow-up examination in 4-6 weeks to evaluate for resolution. <Electronically signed by Camden Shen > 09/20/20 0646
== END ==
LOC: M WHC 07:01
PROVIDERS: ATTEND Advanced Practice Midwife
DX: R10.2 Pelvic and perineal pain (principal); Z30.431 Encounter for routine checking of intrauterine contraceptive device

== ENCOUNTER → 2021-06-28 | Outpatient (CLI) | payer BC ==
[2021-06-28 17:31] LABS: FREE T4 1.07 NG/DL (0.76-1.46); THYROID STIMULATING HORMONE 2.64 uIU/ML (0.358-3.740)
== END ==
LOC: M PLALAB 14:48
PROVIDERS: ATTEND Orthopaedic Surgery
DX: G56.01 Carpal tunnel syndrome, right upper limb (principal)

== ENCOUNTER → 2022-04-25 | Outpatient (CLI) | payer BC | LOC: M RAD 07:23 | PROVIDERS: ATTEND Family Medicine | DX: R10.11 Right upper quadrant pain (principal) ==

== ENCOUNTER → 2022-04-25 | Outpatient (CLI) | payer BC ==
[2022-04-25 11:07] LABS: BASO % 0.4 % (0.0-1.0); EOS # 0.1 10^3/uL (0.0-0.5); EOS % 1.7 % (0.0-3.0); HEMATOCRIT 37.9 % (36.0-47.0); HEMOGLOBIN 11.6 g/dl (12.0-15.5); LYMPH # 1.9 10^3/uL (1.5-5.0); LYMPH % 27.3 % (24.0-44.0); MEAN CORPUSCULAR HEMOGLOBIN 24.1 pg (27.0-33.0); MEAN CORPUSCULAR HGB CONC 30.6 g/dl (32.0-36.5); MEAN CORPUSCULAR VOLUME 78.6 fl (80.0-96.0); MONO # 0.4 10^3/uL (0.0-0.8); MONO % 5.9 % (2.0-8.0); NEUTROPHILS # 4.5 10^3/uL (1.5-8.5); NEUTROPHILS % 64.4 % (36.0-66.0); PLATELET COUNT, AUTOMATED 271 10^3/uL (150-450); RED BLOOD COUNT 4.82 10^6/uL (4.00-5.40)
[2022-04-25 11:23] LABS: ALBUMIN 3.7 G/DL (3.2-5.2); ALKALINE PHOSPHATASE 95 U/L (46-116); ALT/SGPT 22 U/L (7.0-40); AST/SGOT 22 U/L (<34); BILIRUBIN,TOTAL 0.5 MG/DL (0.3-1.2); BLOOD UREA NITROGEN 14 MG/DL (9-23); CALCIUM LEVEL 8.9 MG/DL (8.5-10.1); CARBON DIOXIDE LEVEL 24 MMOL/L (20-31); CHLORIDE LEVEL 107 MMOL/L (98-107); GLOMERULAR FILTRATION RATE > 60.0 (>60); GLUCOSE, FASTING 78 MG/DL (60-100); POTASSIUM SERUM 4.6 MMOL/L (3.5-5.1); SODIUM LEVEL 141 MMOL/L (136-145); TOTAL PROTEIN 7.4 G/DL (5.7-8.2)
== END ==
LOC: M PLALAB 08:00
PROVIDERS: ATTEND Family Medicine
DX: R10.11 Right upper quadrant pain (principal)

== ENCOUNTER → 2023-10-22 | Outpatient (CLI) | payer OTHER ==
[2023-10-22 15:32] LABS: HEMATOCRIT 36.7 % (36.0-47.0); HEMOGLOBIN 12.4 g/dl (12.0-15.5); MEAN CORPUSCULAR HEMOGLOBIN 28.2 pg (27.0-33.0); MEAN CORPUSCULAR HGB CONC 33.8 g/dl (32.0-36.5); MEAN CORPUSCULAR VOLUME 83.6 fl (80.0-96.0); PLATELET COUNT, AUTOMATED 232 10^3/uL (150-450); RED BLOOD COUNT 4.39 10^6/uL (4.00-5.40); WHITE BLOOD COUNT 8.8 10^3/uL (4.0-10.0)
[2023-10-22 16:26] LABS: HIV 1&2 SCREEN NEGATIVE (NEGATIVE)
[2023-10-22 16:34] LABS: HEPATITIS C VIRUS ABY INDEX < 0.02 INDEX (<0.8)
[2023-10-22 16:59] LABS: GC DNA AMPLIFICATION NEGATIVE (NEGATIVE)
== END ==
LOC: M PLALAB 13:05
PROVIDERS: ATTEND Advanced Practice Midwife
DX: O99.211 Obesity complicating pregnancy, first trimester (principal)

== ENCOUNTER → 2023-12-07 | Outpatient (CLI) | payer OTHER | LOC: M WHC 10:05 | PROVIDERS: ATTEND Obstetrics & Gynecology | DX: O99.212 Obesity complicating pregnancy, second trimester (principal) ==

== ENCOUNTER → 2024-01-18 | Outpatient (CLI) | payer OTHER ==
[2024-01-18 12:10] LABS: BASO % 0.4 % (0.0-1.0); EOS # 0.3 10^3/uL (0.0-0.5); EOS % 3.1 % (0.0-3.0); HEMATOCRIT 35.3 % (36.0-47.0); HEMOGLOBIN 11.7 g/dl (12.0-15.5); LYMPH # 1.6 10^3/uL (1.5-5.0); LYMPH % 17.7 % (24.0-44.0); MEAN CORPUSCULAR HEMOGLOBIN 27.9 pg (27.0-33.0); MEAN CORPUSCULAR HGB CONC 33.1 g/dl (32.0-36.5); MEAN CORPUSCULAR VOLUME 84.2 fl (80.0-96.0); MONO # 0.5 10^3/uL (0.0-0.8); MONO % 5.6 % (2.0-8.0); NEUTROPHILS # 6.8 10^3/uL (1.5-8.5); NEUTROPHILS % 72.8 % (36.0-66.0); PLATELET COUNT, AUTOMATED 231 10^3/uL (150-450); RED BLOOD COUNT 4.19 10^6/uL (4.00-5.40); WHITE BLOOD COUNT 9.3 10^3/uL (4.0-10.0)
[2024-01-18 12:23] LABS: ERYTHROCYTE SEDIMENTATION RATE 38 mm/hr (0-20)
[2024-01-18 12:34] LABS: ALKALINE PHOSPHATASE 92 U/L (46-116); ALT/SGPT 15 U/L (7.0-40); AST/SGOT 11 U/L (<34); BILIRUBIN,TOTAL 0.4 MG/DL (0.3-1.2); BLOOD UREA NITROGEN 8 MG/DL (9-23); CALCIUM LEVEL 8.9 MG/DL (8.5-10.1); CARBON DIOXIDE LEVEL 23 MMOL/L (20-31); CHLORIDE LEVEL 109 MMOL/L (98-107); CREATININE FOR GFR 0.54 MG/DL (0.55-1.30); GLOMERULAR FILTRATION RATE > 60.0 (>60); GLUCOSE, FASTING 62 MG/DL (60-100); POTASSIUM SERUM 4.1 MMOL/L (3.5-5.1); SODIUM LEVEL 139 MMOL/L (136-145); TOTAL PROTEIN 6.6 G/DL (5.7-8.2)
== END ==
LOC: M PLALAB 08:28
PROVIDERS: ATTEND Registered Nurse
DX: R59.0 Localized enlarged lymph nodes (principal)

== ENCOUNTER → 2024-01-28 | Outpatient (CLI) | payer OTHER | LOC: M RAD 13:02 | PROVIDERS: ATTEND Registered Nurse | DX: R59.0 Localized enlarged lymph nodes (principal) ==

== ENCOUNTER → 2024-02-04 | Outpatient (CLI) | payer OTHER ==
[2024-02-04 11:10] LABS: HEMATOCRIT 33.2 % (36.0-47.0); HEMOGLOBIN 11.2 g/dl (12.0-15.5); MEAN CORPUSCULAR HEMOGLOBIN 28.1 pg (27.0-33.0); MEAN CORPUSCULAR HGB CONC 33.7 g/dl (32.0-36.5); MEAN CORPUSCULAR VOLUME 83.4 fl (80.0-96.0); PLATELET COUNT, AUTOMATED 222 10^3/uL (150-450); RED BLOOD COUNT 3.98 10^6/uL (4.00-5.40); WHITE BLOOD COUNT 9.3 10^3/uL (4.0-10.0)
[2024-02-04 11:25] LABS: GLUCOSE CHALLENGE TEST 1 HOUR 81 MG/DL (LESS THAN 140)
[2024-02-04 11:59] LABS: HIV 1&2 SCREEN NEGATIVE (NEGATIVE)
[2024-02-04 12:07] LABS: HEPATITIS C VIRUS ABY INDEX 0.04 INDEX (<0.8)
== END ==
LOC: M PLALAB 08:21
PROVIDERS: ATTEND Advanced Practice Midwife
DX: Z34.92 Encounter for supervision of normal pregnancy, unspecified, second trimester (principal)

== ENCOUNTER → 2024-02-05 | Outpatient (CLI) | payer OTHER | LOC: M WHC 15:16 | PROVIDERS: ATTEND Advanced Practice Midwife | DX: Z34.92 Encounter for supervision of normal pregnancy, unspecified, second trimester (principal) ==

== ENCOUNTER → 2024-03-10 | Outpatient (CLI) | payer OTHER ==
[2024-03-10 13:20] VITALS: TEMP 97.7
[2024-03-10 13:50] VITALS: BP 132/76; O2SAT 98
== END ==
LOC: M IRPRO 13:15
PROVIDERS: ATTEND Otolaryngology
DX: R22.1 Localized swelling, mass and lump, neck (principal)

== ENCOUNTER → 2024-03-25 | Outpatient (REF) | payer OTHER | LOC: M PLALAB 13:01 | PROVIDERS: ATTEND Obstetrics & Gynecology | DX: Z36.89 Encounter for other specified antenatal screening (principal); Z3A.36 36 weeks gestation of pregnancy ==

== ENCOUNTER 2024-04-28 20:57 | Inpatient (IN) | payer OTHER ==
[~2024-04-28] VITALS: Ht 165.1 cm; Wt 113.3 kg
[2024-04-28 22:14] VITALS: BP 102/60
[2024-04-28 22:24] LABS: HEMATOCRIT 32.9 % (36.0-47.0); HEMOGLOBIN 10.8 g/dl (12.0-15.5); MEAN CORPUSCULAR HEMOGLOBIN 25.8 pg (27.0-33.0); MEAN CORPUSCULAR HGB CONC 32.8 g/dl (32.0-36.5); MEAN CORPUSCULAR VOLUME 78.5 fl (80.0-96.0); PLATELET COUNT, AUTOMATED 254 10^3/uL (150-450); RED BLOOD COUNT 4.19 10^6/uL (4.00-5.40)
[2024-04-28] MEDS ORDERED: TRANEXAMIC ACID INJection 1,000 MG in NS 100 ML IV PRN (23:05)
[2024-04-28] MEDS ORDERED: LIDOCAINE 1% MDV 20ML VIAL INFIL PRN (23:05)
[2024-04-28] MEDS ORDERED: CARBOPROST TROMETHAMINE 250 MCG/ML AMP IM PRN (23:05)
[2024-04-28] MEDS: miSOPROStol 50MCG 1/2 TABLET PO SCH (23:20)
[2024-04-28 23:24] VITALS: BP 114/72
[2024-04-29] VITALS (32 sets, daily range): BP systolic 97–137; BP diastolic 51–79
[2024-04-29] MEDS ORDERED: LR 1,000 ML IV SCH (13:30)
[2024-04-29] MEDS: OXYTOCIN DRIP 30 UNITS in IV 1 EA IV SCH (15:07)
[2024-04-29] MEDS: LR 1,000 ML IV SCH (15:07)
[2024-04-29] MEDS ORDERED: ePHEDrine SULFATE 25 MG/5 ML(5MG/ML) SYRINGE IVP PRN (20:40)
[2024-04-29] MEDS ORDERED: EPIDURAL/PCA KEYS XX PRN (20:40)
[2024-04-29] MEDS ORDERED: NALOXONE INJ 0.4MG/1ML VIAL IV PRN (20:40)
[2024-04-29] MEDS ORDERED: diphenhydrAMINE 50MG/ML VIAL IV PRN (20:40)
[2024-04-29] MEDS: FENTANYL/ROPIVACAINE/NACL BAG 100 ML EPIDURAL SCH (20:46)
[2024-04-30] VITALS (28 sets, daily range): BP systolic 90–129; BP diastolic 51–72; O2SAT 98
[2024-04-30] MEDS: LR 500 ML IV PRN (02:29)
[2024-04-30] MEDS: ONDANSETRON 4MG 2ML VIAL IV PRN (02:29)
[2024-04-30] MEDS: METHYLERGONOVINE MALEATE 0.2MG/ML 1ML VIAL IM PRN (07:43)
[2024-04-30] MEDS ORDERED: ACETAMINOPHEN 325 MG TAB PO PRN (07:45)
[2024-04-30] MEDS ORDERED: IBUPROFEN 600MG TAB PO PRN (07:45)
[2024-04-30] MEDS ORDERED: METHYLERGONOVINE MALEATE 0.2 MG TAB PO PRN (07:45)
[2024-04-30] MEDS: OXYTOCIN DRIP 30 UNITS in IV 1 EA IV SCH (07:45)
[2024-04-30] MEDS ORDERED: RHOGAM 300MCG (1500IU) INJ IM SCH (07:45)
[2024-04-30] MEDS: LACTATED RINGER'S 1000 ML IV STA (08:10)
[2024-04-30] MEDS: PRENATAL VITAMINS CHEWABLE TABLET PO SCH (08:28)
[2024-04-30] MEDS: ACETAMINOPHEN 500 MG TAB PO PRN (08:29)
[2024-04-30] MEDS: IBUPROFEN 800 MG TAB PO PRN (11:12)
[2024-04-30] MEDS: DOCUSATE SODIUM 100MG CAPSULE PO PRN (11:12)
[2024-04-30] MEDS: DIBUCAINE 1% OINTMENT 30GM TOP PRN (11:13)
[2024-05-01 05:48] VITALS: BP 110/67; O2SAT 100
[2024-05-02] MEDS ORDERED: MEASLES,MUMPS,RUBELLA VACCINE INJ (MMR-II) SC.IMMUN ONE (09:00)
== END 2024-05-01 13:05 | disposition home or self-care (01) | DRG 807 ==
LOC: M LDI 20:57 → M OBS 04-30 09:54
PROVIDERS: ADMIT Obstetrics & Gynecology; ATTEND Advanced Practice Midwife
PROC: 3E0P7GC Introduction of Other Therapeutic Substance into Female Reproductive, Via Natural or Artificial Opening (ICD-10-PCS; 2024-04-28)
PROC: 10E0XZZ Delivery of Products of Conception, External Approach (ICD-10-PCS; principal; 2024-04-30)
DX: O48.0 Post-term pregnancy (principal); Z37.0 Single live birth; Z3A.41 41 weeks gestation of pregnancy

== ENCOUNTER 2024-07-17 07:44 | Observation (INO) | payer OTHER ==
[~2024-07-17] VITALS: Ht 165.1 cm; Wt 110.9 kg
[~2024-07-17 07:44] MED LIST changes: +ACET1TAB55 PO; +CEPH500C PO
[2024-07-17] MEDS ORDERED: OXYC-517 PO (08:18)
[2024-07-17] MEDS ORDERED: MUPI2OI TOP (08:18)
[2024-07-17] MEDS ORDERED: IBUP-1114 PO (08:18)
[2024-07-17] MEDS: PANTOPRAZOLE 20 MG TAB PO SCH (09:00)
[2024-07-17 09:10] LABS: BASO % 0.1 % (0.0-1.0); EOS # 0.1 10^3/uL (0.0-0.5); EOS % 0.8 % (0.0-3.0); HEMATOCRIT 36.4 % (36.0-47.0); HEMOGLOBIN 11.9 g/dl (12.0-15.5); LYMPH # 0.2 10^3/uL (1.5-5.0); LYMPH % 2.6 % (24.0-44.0); MEAN CORPUSCULAR HEMOGLOBIN 25.1 pg (27.0-33.0); MEAN CORPUSCULAR HGB CONC 32.7 g/dl (32.0-36.5); MEAN CORPUSCULAR VOLUME 76.6 fl (80.0-96.0); MONO # 0.4 10^3/uL (0.0-0.8); MONO % 4.4 % (2.0-8.0); NEUTROPHILS # 7.7 10^3/uL (1.5-8.5); NEUTROPHILS % 91.7 % (36.0-66.0); PLATELET COUNT, AUTOMATED 279 10^3/uL (150-450); RED BLOOD COUNT 4.75 10^6/uL (4.00-5.40); WHITE BLOOD COUNT 8.4 10^3/uL (4.0-10.0)
[2024-07-17 09:30] LABS: KETONE, URINE AUTO RFX NEGATIVE (NEGATIVE); LEUKOCYTE ESTERASE UR AUTO RFX NEGATIVE (NEGATIVE); MUCUS, URINE RFX SMALL (NEGATIVE); NITRITE, URINE AUTO RFX NEGATIVE (NEGATIVE); RBC, URINE AUTO RFX 6 /HPF (0-3); SQUAM EPITHELIAL CELL UR AURFX 0 /HPF (0-6); WBC, URINE AUTO RFX 2 /HPF (0-3)
[2024-07-17 09:39] LABS: LIPASE 38 U/L (12-53)
[2024-07-17 09:41] LABS: ALBUMIN 3.9 G/DL (3.2-5.2); ALKALINE PHOSPHATASE 104 U/L (35-104); ALT/SGPT 44 U/L (7.0-40); AST/SGOT 30 U/L (<34); BILIRUBIN,DIRECT 0.3 MG/DL (<0.4); BILIRUBIN,TOTAL 0.7 MG/DL (0.3-1.2); BLOOD UREA NITROGEN 15 MG/DL (9-23); CARBON DIOXIDE LEVEL 22 MMOL/L (20-31); CHLORIDE LEVEL 108 MMOL/L (98-107); GLOMERULAR FILTRATION RATE > 60.0 (>60); GLUCOSE, FASTING 110 MG/DL (60-100); HCG, SERUM QUALITATIVE NEGATIVE (NEGATIVE); POTASSIUM SERUM 4.2 MMOL/L (3.5-5.1); SODIUM LEVEL 143 MMOL/L (136-145); TOTAL PROTEIN 7.6 G/DL (5.7-8.2)
[2024-07-17] MEDS: NS (Normal Saline) 0.9% 1,000 ML IV ONE ×3 (09:45→14:15)
[2024-07-17] MEDS: ACETAMINOPHEN 500 MG TAB PO ONE (09:45)
[2024-07-17] MEDS ORDERED: ISOVUE-370 76% 100ML VIAL As Ordered ONE (10:32)
[2024-07-17] MEDS: ONDANSETRON 4MG 2ML VIAL IV ONE (14:48)
[2024-07-17] MEDS ORDERED: PINK BISMUTH SUSP 524MG/30ML ORAL SYRINGE PO PRN (14:50)
[2024-07-17] MEDS ORDERED: AZITHROMYCIN 250MG TABLET PO ONE (14:50)
[2024-07-17] MEDS: PINK BISMUTH SUSP 524MG/30ML ORAL SYRINGE PO PRN (15:37)
[2024-07-17] MEDS: NS (Normal Saline) 0.9% 1,000 ML IV SCH (15:55)
[2024-07-17] MEDS: AZITHROMYCIN 250MG TABLET PO SCH (16:07)
[2024-07-17] MEDS ORDERED: OMEP40CA5 PO (19:52)
[2024-07-17] MEDS ORDERED: HOME MED LIST COMPLETE! XX SCH (19:55)
[2024-07-17] MEDS: ACETAMINOPHEN 325 MG TAB PO PRN (20:35)
[2024-07-17] MEDS: CEPHALEXIN 500 MG CAP PO SCH (20:35)
[2024-07-17 22:29] VITALS: BP 123/72; TEMP 97.7; O2SAT 97
[2024-07-18 04:35] VITALS: BP 115/69; TEMP 97.3; O2SAT 98
[2024-07-18 05:30] LABS: MEAN CORPUSCULAR HEMOGLOBIN 24.5 pg (27.0-33.0); MEAN CORPUSCULAR HGB CONC 31.7 g/dl (32.0-36.5); MEAN CORPUSCULAR VOLUME 77.3 fl (80.0-96.0); PLATELET COUNT, AUTOMATED 189 10^3/uL (150-450); RED BLOOD COUNT 3.88 10^6/uL (4.00-5.40); WHITE BLOOD COUNT 2.3 10^3/uL (4.0-10.0)
[2024-07-18 05:33] LABS: HEMOGLOBIN 9.5 g/dl (12.0-15.5)
[2024-07-18 06:11] LABS: BLOOD UREA NITROGEN 7 MG/DL (9-23); CALCIUM LEVEL 8.4 MG/DL (8.5-10.1); CARBON DIOXIDE LEVEL 23 MMOL/L (20-31); CHLORIDE LEVEL 111 MMOL/L (98-107); CREATININE FOR GFR 0.48 MG/DL (0.55-1.30); GLOMERULAR FILTRATION RATE > 60.0 (>60); GLUCOSE, FASTING 67 MG/DL (60-100); POTASSIUM SERUM 3.6 MMOL/L (3.5-5.1); SODIUM LEVEL 145 MMOL/L (136-145)
[2024-07-18 08:00] VITALS: BP 116/78; TEMP 97.7; O2SAT 96
[2024-07-18 10:18] LABS: BASO % 0.4 % (0.0-1.0); EOS # 0.1 10^3/uL (0.0-0.5); EOS % 2.8 % (0.0-3.0); HEMATOCRIT 30.1 % (36.0-47.0); HEMOGLOBIN 9.8 g/dl (12.0-15.5); LYMPH # 0.7 10^3/uL (1.5-5.0); LYMPH % 24.5 % (24.0-44.0); MEAN CORPUSCULAR HEMOGLOBIN 25.1 pg (27.0-33.0); MEAN CORPUSCULAR HGB CONC 32.6 g/dl (32.0-36.5); MONO # 0.6 10^3/uL (0.0-0.8); MONO % 20.2 % (2.0-8.0); NEUTROPHILS # 1.5 10^3/uL (1.5-8.5); NEUTROPHILS % 51.7 % (36.0-66.0); PLATELET COUNT, AUTOMATED 202 10^3/uL (150-450); RED BLOOD COUNT 3.91 10^6/uL (4.00-5.40); WHITE BLOOD COUNT 2.8 10^3/uL (4.0-10.0)
[2024-07-18] MEDS ORDERED: AZIT-12 PO (11:14)
== END 2024-07-18 12:31 | disposition home or self-care (01) ==
LOC: M ED 07:44 → M ED INP 07:45 → M MSPAV 22:29
PROVIDERS: ADMIT Student in an Organized Health Care Education/Training Program; ATTEND Student in an Organized Health Care Education/Training Program
DX: A08.11 Acute gastroenteropathy due to Norwalk agent (principal); B96.89 Other specified bacterial agents as the cause of diseases classified elsewhere; B96.20 Unspecified Escherichia coli [E. coli] as the cause of diseases classified elsewhere; R00.0 Tachycardia, unspecified; E86.0 Dehydration; D70.9 Neutropenia, unspecified; Z98.890 Other specified postprocedural states; K21.9 Gastro-esophageal reflux disease without esophagitis; K80.20 Calculus of gallbladder without cholecystitis without obstruction; Z79.899 Other long term (current) drug therapy; Z79.2 Long term (current) use of antibiotics; Z88.0 Allergy status to penicillin
CPT/HCPCS: 36415; 74177; 80048; 80076; 81001; 83690; 84703; 85025; 85027; 87324; 87486; 87507; 87581; 87633; 87798; 93005; 96374; 99285; J2405; Q9967

== ENCOUNTER → 2024-08-29 | Outpatient (CLI) | payer OTHER ==
[~2024-08-29] MED LIST changes: +AZIT-12 PO; +IBUP-1114 PO; +MUPI2OI TOP; +OMEP40CA5 PO; +OXYC-517 PO
[2024-08-29 13:34] LABS: HEMATOCRIT 36.3 % (36.0-47.0); HEMOGLOBIN 11.4 g/dl (12.0-15.5); MEAN CORPUSCULAR HEMOGLOBIN 24.4 pg (27.0-33.0); MEAN CORPUSCULAR HGB CONC 31.4 g/dl (32.0-36.5); MEAN CORPUSCULAR VOLUME 77.6 fl (80.0-96.0); PLATELET COUNT, AUTOMATED 317 10^3/uL (150-450); RED BLOOD COUNT 4.68 10^6/uL (4.00-5.40); WHITE BLOOD COUNT 6.6 10^3/uL (4.0-10.0)
[2024-08-29 13:38] LABS: ALBUMIN 3.8 G/DL (3.2-5.2); ALKALINE PHOSPHATASE 117 U/L (35-104); ALT/SGPT 24 U/L (7.0-40); AST/SGOT 17 U/L (<34); BILIRUBIN,TOTAL 0.4 MG/DL (0.3-1.2); BLOOD UREA NITROGEN 13 MG/DL (9-23); CALCIUM LEVEL 9.3 MG/DL (8.5-10.1); CARBON DIOXIDE LEVEL 28 MMOL/L (20-31); CHLORIDE LEVEL 107 MMOL/L (98-107); CREATININE FOR GFR 0.55 MG/DL (0.55-1.30); GLOMERULAR FILTRATION RATE > 90.0 (>60); GLUCOSE, FASTING 95 MG/DL (60-100); IRON (FE) 47 UG/DL (50-170); PERCENT SATURATION 13.4 % (13.2-45.0); POTASSIUM SERUM 4.5 MMOL/L (3.5-5.1); SODIUM LEVEL 143 MMOL/L (136-145); TOTAL IRON BINDING CAPACITY 350 UG/DL (250-425); TOTAL PROTEIN 7.2 G/DL (5.7-8.2)
[2024-08-29 13:39] LABS: FERRITIN 11.7 NG/ML (7.3-270.7); THYROID STIMULATING HORMONE < 0.010 uIU/ML (0.55-4.78)
[2024-08-29 13:40] LABS: TOTAL 25(OH) VITAMIN D 18.3 NG/ML (20.0-100.0)
[2024-08-29 16:06] LABS: FREE T4 1.74 NG/DL (0.89-1.76)
== END ==
LOC: M PLALAB 10:51
DX: Z00.00 Encounter for general adult medical examination without abnormal findings (principal)

== ENCOUNTER 2024-12-05 08:21 | Emergency (ER) | payer OTHER ==
[~2024-12-05] VITALS: Ht 165.1 cm; Wt 108.3 kg
[2024-12-05] MEDS ORDERED: VITA200032 (08:30)
[2024-12-05] MEDS ORDERED: IBUP200T46 PO (08:30)
[2024-12-05] MEDS ORDERED: EXCETAB32 PO (08:30)
[2024-12-05] MEDS ORDERED: FERR325T19 (08:30)
[2024-12-05] MEDS: diphenhydrAMINE 50 MG/ML VIAL IV STA (10:10)
[2024-12-05] MEDS: KETOROLAC 30 MG/ML 1 ML VIAL IV ONE (10:10)
[2024-12-05] MEDS: NS (Normal Saline) 0.9% 1,000 ML IV ONE (10:10)
[2024-12-05 12:44] VITALS: BP 120/71; TEMP 99; O2SAT 96
== END 2024-12-05 12:57 | disposition home or self-care (01) ==
LOC: M ED 08:21
DX: R51.9 Headache, unspecified (principal); Z88.1 Allergy status to other antibiotic agents; Z79.1 Long term (current) use of non-steroidal anti-inflammatories (NSAID); Z79.899 Other long term (current) drug therapy; Z79.810 Long term (current) use of selective estrogen receptor modulators (SERMs)
CPT/HCPCS: 96361; 96374; 96375; 99284; J1100; J1200; J1885; J2765